=== PATIENT | female | born 1965 | race Caucasian/White ===

== ENCOUNTER → 2018-05-10 18:15 | Outpatient (CLI) | payer OTHER, SELFPAY | PROVIDERS: Visit Provider Physician Assistant | DX: N39.0 Urinary tract infection, site not specified (principal) | CPT/HCPCS: 87086; 87088; 87186 ==

== ENCOUNTER 2018-05-23 13:38 | Outpatient (RCR) | payer OTHER, SELFPAY ==
--- NOTE | 2018-05-23 14:39 | HMH.PTOPEV ---
PT Outpatient Evaluation Rehab PT Outpatient Evaluation Start: 05/23/18 14:22 Freq: Status: Active Protocol: Document 05/23/18 14:30 SULMAAMANDEEP (Rec: 05/23/18 14:39 JENELLE [id number]) Electronically Signed By Sohail Renee, PT 05/23/18 14:30 Outpatient Therapy Subjective History Subjective History This is the initial OP PT evaluation for Aleja Brown. PT is a 53 y/o female referred to PT for c/o R sided neck pain and RUE paresthesia. Pt rpeorts pain and numbness began ~ 1 year ago when she fell off counter and landed on kitchen table. Chief Complaint Pain Paresthesia Symptom Type Sharp Numbness Tingling Symptoms Relieved By Nothing Symptoms Aggravated By Prone Supine Sitting Standing Bending/Stooping Physical Activity Lifting Sneeze/Coughing Prior Functional Limitations None Current Functional Limitations Reaching Lifting Housework Desk Work/Reading Driving Sleeping Symptom Description Intermittent Level of pain today (0-10) 9 Pain scale - at its best (0-10) 9 Pain scale - at its worst (0-10) 9 Cervical Eval Palpation Cervical Muscles R Cervical Paraspinal L Cervical Paraspinal R Suboccipital R SCM L SCM R CT Junction R Upper Trapezius R Thoracic Paraspinals Cervical/Thoracic Palpation Findings Tenderness Spasm Muscle Guarding Passive Joint Mobility Cervical PIVM Dec: R C2/3 R C3/4 R C4/5 R C5/6 AROM Cervical Spine Extension Active Range of 20 Motion (degrees) Cervical Spine Flexion Active Range of 60 Motion (degrees) Cervical Spine Right Lateral Flexion 25 Active Range of Motion (degrees)
== END 2018-05-23 13:40 | disposition home or self-care (01) ==
LOC: PT 13:38
PROVIDERS: Visit Provider Physician Assistant
DX: M50.222 Other cervical disc displacement at C5-C6 level (principal)
CPT/HCPCS: 97163

== ENCOUNTER 2020-08-16 09:24 | Emergency (ER) | payer OTHER, SELFPAY ==
[2020-08-16 09:25] VITALS: BP 118/88; PULSE 89; RESP 20; TEMP 36.8; O2SAT 97; BMI 22.3
[2020-08-16 09:44] VITALS: BMI 23.4
--- NOTE | 2020-08-16 09:47 | PC.NURSE ---
verbal orders given per provide perfecto peraza -orders placed on pt at this time per post exposure set as directed per perfecto peraza.
--- NOTE | 2020-08-16 09:48 | HMH.EDUTC ---
[facility] [place] Clinical Impression: Needlestick injury of finger of left hand Disposition: Home, Self-Care Condition on Discharge: Good Instructions: How to Handle Body Fluid Exposure -- Healthcare Worker Prescriptions: Dolutegravir Sodium [Tivicay] 50 mg PO DAILY 28 Days #28 tab Transmission Status: Received by [facility] Emtricitabine/Tenofovir (Tdf) [Truvada 200/300 mg Tablet] 1 each PO DAILY 28 Days #28 tab Transmission Status: Received by [facility] Referrals: Nesha Nelson PA [Primary Care Provider] - Time of Disposition: 09:58 Medical Decision Making - Mehran Inquiry Pt receiving controlled substance: No Vital Signs: 08/16/20 09:25 Temperature 98.3 F Temperature Source Oral Pulse Rate [Right Brachial] 89 Respiratory Rate 20 Blood Pressure [Right Arm] 118/88 Blood Pressure Mean [Right Arm] 98 Blood Pressure Source [Right Arm] Automatic Cuff Blood Pressure Position [Right Arm] Sitting 02 Sat by Pulse Oximetry 97 Oxygen Delivery Method Room Air Orders (Tests/Meds): ED MEDICATIONS Generic Name Dose Route Start Last Admin Trade Name Freq PRN Reason Stop Dose Admin Emtricitabine/Tenofovir 1 each 08/16/20 10:00 08/16/20 09:59 Emtricitabine/Tenofovir 200/300mg Tab PO 08/30/20 09:59 1 each DAILY JOSE LUIS Administration Raltegravir 400 mg 08/16/20 10:00 08/16/20 09:59 Raltegravir 400mg Tablet PO 08/30/20 09:59 400 mg BID JOSE LUIS Administration Discontinued Medications Generic Name Dose Route Start Last Admin Trade Name Freq PRN Reason Stop Dose Admin Tetanus/Reduced Diphtheria/Acell Pertussis 0.5 ml 08/16/20 09:45 08/16/20 10:00 Tet/Diphth/Pert-Adult 0.5ml Syringe IM 08/16/20 09:46 0.5 ml .ONCE ONE Administration ORDERS Category Date Time Status Complete Blood Count Auto Diff Stat Lab 08/16/20 09:45 Ordered HBsAg Screen Stat Lab 08/16/20 09:45 Ordered HIV Panel [id number] Stat Lab 08/16/20 09:45 Ordered Hepatitis B Surf Ab Quant Stat Lab 08/16/20 09:45 Ordered Hepatitis C Antibody Stat Lab 08/16/20 09:45 Ordered Liver Panel Stat Lab 08/16/20 09:45 Ordered PT/PTT Stat Lab 08/16/20 09:45 Or[place] [facility] [place] - General Stated complaint: a/o 08/16 stuck with dirty needle Time Seen by Provider: 08/16/20 09:49 Mode of Arrival: Ambulatory Source of Information: Patient Limitations: No Limitations Description of Symptoms (Recalled from Triage Doc. 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 UNKNOWN WHAT NEEDLE WAS USED FOR. SHE STATES THE NEEDLE STUCK HER WHILE SHE WAS SWEEPING UNDER A BED IN RESIDENT'S ROOM HEENT Symptoms (Recalled from RN notes): No Resp Symptoms (Recalled from RN notes): No Skin Symptoms (Recalled from RN notes): Yes MS Symptoms (Recalled from RN notes): No Functional Status (Recalled from RN notes): WNL - History of Present Illness Provider Complaint: Accidental needlestick injury to pad of left index finger approximately 1.5 hours ago. 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 Used her hand to scoop items into the dustbin and was stuck. The resident whose bed this was is not known to be HIV positive but they are unsure if this needle actually came from the patient in question as it was under the bed. She did wash her hands immediately after the needlestick. Onset (ago): hour(s) (1.5) Location: left, upper extremity Relieving factors: none Exacerbating factors: none Associated symptoms: denies other symptoms Treatments prior to arrival: none - Related Data Previous Rx's Medication Instructions Recorded Dolutegravir Sodium [Tivicay] 50 mg PO DAILY 28 Days #28 tab 08/16/20 Emtricitabine/Tenofovir (Tdf) 1 each PO DAILY 28 Days #28 tab 08/16/20 [Truvada 200/300 mg Tablet] Allergies Allergy/AdvReac Type Severity Reaction Status Date / Time aspirin [ASPIRIN] Allergy Intermediate I-HIVES Verified 08/28/19 14:01 morphine [M
[2020-08-16 10:34] VITALS: BP 118/88; PULSE 89; RESP 20; TEMP 36.8; O2SAT 97
[2020-08-16 10:38] LABS: Basophils % 0.5 % (0.1-2.0); Eosinophils # 0.1 K/mm3 (0.0-0.4); Eosinophils % 1.5 % (0.1-12.0); Hematocrit 42.3 % (37.0-47.0); Hemoglobin 13.9 g/dL (12.2-16.2); Lymphocytes # 1.6 K/mm3 (0.7-4.5); Lymphocytes % 28.4 % (10-50); Mean Corpuscular HGB Conc 32.9 g/dL (31.8-35.4); Mean Corpuscular Volume 97.5 fl (81-99); Mean Platelet Volume 7.4 fl (7.4-10.4); Monocytes # 0.2 K/mm3 (0.1-1.0); Monocytes % 3.6 % (1.7-9.3); Neutrophils # 3.8 K/mm3 (1.8-7.8); Neutrophils % 66.1 % (37.0-80.0); Platelet Count 232 K/mm3 (142-424); Red Blood Count 4.34 M/mm3 (4.20-5.40); Red Cell Distribution Width 13.1 % (11.5-17.5); White Blood Count 5.7 K/mm3 (4.8-10.8)
[2020-08-16 10:50] LABS: Alanine Aminotransferase 17 U/L (12-78); Albumin Level 4.6 g/dl (3.5-5.0); Alkaline Phosphatase 99 U/L (38-126); Aspartate Amino Transferase 32 U/L (14-36); Bilirubin,Direct 0.2 mg/dl (0.0-0.4); Bilirubin,Indirect 0.5 mg/dL (0.0-0.9); Bilirubin,Total 0.7 mg/dl (0.2-1.3); Bilirubin,Unconjugated 0.5 mg/dL (0.0-1.1); Total Protein,Serum 8.7 g/dl (6.3-8.2)
[2020-08-16 10:58] LABS: Activated Partial Thrombo Time 23.6 seconds (23.6-34.0); INR 0.98 (0.9-1.1); Prothrombin Time 10.9 seconds (9.4-11.8)
[2020-08-18 01:06] LABS: HIV Screen 4th Generation wRfx Non Reactive (Non Reactive); Hepatitis B Surf Ab Quant 260.3 mIU/mL (Immunity>9.9); Hepatitis B Surface Antigen Negative (Negative); Hepatitis C Antibody <0.1 s/co ratio (0.0-0.9)
== END 2020-08-16 10:37 | disposition home or self-care (01) ==
PROVIDERS: Emergency Provider Physician Assistant; PCP Physician Assistant
DX: S61.231A Puncture wound without foreign body of left index finger without damage to nail, initial encounter (principal); W22.8XXA Striking against or struck by other objects, initial encounter; Y92.69 Other specified industrial and construction area as the place of occurrence of the external cause; Y99.0 Civilian activity done for income or pay; Z23 Encounter for immunization
CPT/HCPCS: 36415; 80076; 85025; 85610; 85730; 86703; 86706; 87340; 87380; 90471; 90715; 99202; G0432; G0463

== ENCOUNTER 2020-12-16 10:23 | Emergency (ER) | payer OTHER, SELFPAY ==
[2020-12-16 10:23] VITALS: BP 119/74; PULSE 106; RESP 18; TEMP 36.9; O2SAT 96; BMI 18.8
--- NOTE | 2020-12-16 10:42 | HMH.EDGENADL ---
ED Disposition Clinical Impression: Radiculopathy Qualifiers: Spinal region: lumbar Qualified Code(s): M54.16 - Radiculopathy, lumbar region Disposition: Home, Self-Care Condition on Discharge: Fair Instructions: DI for Muscle Strain Referrals: Nesha Nleson PA [Primary Care Provider] - 3 days Time of Disposition: 12:02 - Critical Care Critical Care Time: No Attestation: On 12/16/20, the high probability of a clinically significant, sudden or life threatening deterioration of the following system(s) required my full and direct attention, intervention and personal management. The time I documented below is in addition to time spent performing reported procedures but includes the following listed in this critical care notation. Medical Decision Making - Medical Records Medical records reviewed: Yes: I reviewed the patient's medical records. - Mehran Inquiry Pt receiving controlled substance: No Vital Signs: 12/16/20 10:23 12/16/20 10:52 Temperature 98.5 F Temperature Source Oral Pulse Rate 94 H Pulse Rate [Left] 106 H Respiratory Rate 18 16 Blood Pressure 96/63 L Blood Pressure [Right Arm] 119/74 Blood Pressure Mean [Right Arm] 89 Blood Pressure Source Automatic Cuff Blood Pressure Source [Right Arm] Automatic Cuff Blood Pressure Position Sitting Blood Pressure Position [Right Arm] Sitting 02 Sat by Pulse Oximetry 96 96 Oxygen Delivery Method Room Air Room Air Orders (Tests/Meds): ED MEDICATIONS Discontinued Medications Generic Name Dose Route Start Last Admin Trade Name Freq PRN Reason Stop Dose Admin Ketorolac Tromethamine 15 mg 12/16/20 10:49 12/16/20 10:55 Ketorolac 30mg/Ml Vial IM 12/16/20 10:50 15 mg ONCE ONE Administration - Radiology Data #1 Image(s): L-Spine Image Reviewed: Yes I have reviewed radiologist's interpretation Preliminary Findings: Normal/NAD Mild loss in disc height L2, 3, 4, 5. Medical Decision Narrative: 55yo F evaluated for right lower extremity pain. Patient in no acute distress initial evaluation. Physical exam is largely unremarkable. Patient denies any trauma. No previous history, therefore plain films obtained. Patient provided Toradol for pain. Patient plain films reveal loss of disc height but otherwise unremarkable. Patient symptoms have improved with Toradol. Discussed heat/cold, NSAIDs, activity as tolerated. Patient voiced understanding and agreed with plan. General Adult HPI - General Stated complaint: rt leg pain, swelling Time Seen by Provider: 12/16/20 10:42 Mode of Arrival: Ambulatory Source of Information: Patient - History of Present Illness HPI narrative: 55yo F presents the emergency department secondary to right leg pain. Patient states pain is worst on her lateral hip/thigh. Symptoms began yesterday morning. She states they are improved by sitting in a warm bath. They are worse with physical activity. No previous episodes similar to this. Denies any fall, trauma. Denies any surgery on her back. Denies any shortness of breath, rapid heart rate, history of blood clot. - Related Data Allergies Allergy/AdvReac Type Severity Reaction Status Date / Time aspirin [ASPIRIN] Allergy Intermediate I-HIVES Verified 08/28/19 14:01 morphine [MORPHINE] Allergy Intermediate S-SWELLS-OR Verified 08/28/19 14:01 AL/THROAT Penicillins [PENICILLINS] Allergy Unknown NA-NAUSEA/V Verified 08/28/19 14:01 OMITING [facility] History - Hepatitis A Screen Drug use history?: No Attestation statement:: This patient has been screened for Hepatitis A risk factors. I have reviewed the patient's past medical history: Yes Medical History: Denies:: Diabetes Mellitus Type 1, Diabetes Mellitus Type 2 Other Surgeries: Yes: Hysterectomy-Partial Amputation: No Fractures: No - Social History Smoking Status: Current every day smoker Tobacco Type: cigarettes # Packs/Day (cigarettes): 1 Alcohol Intake: ne
--- NOTE | 2020-12-16 10:49 | XR_ITS ---
PROCEDURE: XR LUMBAR SPINE MIN 4V CLINICAL INDICATION: pain, radicular COMPARISON: CT ABDPELWO CT abdomen pelvis wo con from 04/20/2018 FINDINGS: No fracture or dislocation. No lytic or blastic change. There is normal mineralization. Mild thoracolumbar curvature convex right. Mild degenerative disc disease lower thoracic spine. Mild degenerative disc disease lumbar spine with small anterior osteophytes and slight decrease in the disc spaces posteriorly. There is slight decrease in height anteriorly of L2, L3, L4 and L5. This however is a chronic finding and may be developmental having a similar appearance on a prior CT of 04/20/2018. Other findings:None. IMPRESSION: Degenerative changes as described above. No acute finding. Dictated by: Salinas Farnsworth MD 12/16/2020 11:27 Salinas Farnsworth MD in [place] 12/16/2020 11:27
[2020-12-16 10:52] VITALS: BP 96/63; PULSE 94; RESP 16; O2SAT 96
[2020-12-16 12:10] VITALS: BP 107/5; PULSE 79; RESP 20; TEMP 36.8; O2SAT 98
== END 2020-12-16 12:10 | disposition home or self-care (01) ==
PROVIDERS: Emergency Provider Family Medicine; PCP Physician Assistant
DX: M54.16 Radiculopathy, lumbar region (principal); F17.210 Nicotine dependence, cigarettes, uncomplicated; Z88.0 Allergy status to penicillin; Z88.5 Allergy status to narcotic agent
CPT/HCPCS: 72110; 96372; 99282

== ENCOUNTER 2022-02-16 06:58 | Emergency (ER) | payer OTHER, SELFPAY ==
[2022-02-16] VITALS (8 sets, daily range): BP systolic 111–123; BP diastolic 58–93; PULSE 61–91; RESP 18; TEMP 36.8; O2SAT 97–100; BMI 17.2
[2022-02-16 07:41] LABS: Microscopic, Urine URINE MICROSCOPIC (MICROSCOPIC)
--- NOTE | 2022-02-16 07:43 | HMH.EDGENADL ---
ED Disposition Clinical Impression: Liver cyst Low back strain Qualifiers: Encounter type: initial encounter Qualified Code(s): S39.012A - Strain of muscle, fascia and tendon of lower back, initial encounter Disposition: Home, Self-Care Condition on Discharge: Good Instructions: DI for Acute Pain -- Child Prescriptions: Cyclobenzaprine HCl [Flexeril 10mg tablet] 10 mg PO Q8HP PRN 30 Days #20 tab PRN Reason: Muscle Spasm Transmission Status: Received by [facility] cephALEXin [cephALEXin 500mg capsule*] 500 mg PO Q6H 7 Days #28 cap Transmission Status: Received by [facility] Referrals: Nesha Nelson PA [Primary Care Provider] - - Critical Care Critical Care Time: No Attestation: On 02/16/22, the high probability of a clinically significant, sudden or life threatening deterioration of the following system(s) required my full and direct attention, intervention and personal management. The time I documented below is in addition to time spent performing reported procedures but includes the following listed in this critical care notation. Medical Decision Making - Medical Records Medical records reviewed: Yes: I reviewed the patient's medical records. - Mehran Inquiry Pt receiving controlled substance: No Mehran was queried for this patient: No Vital Signs: 02/16/22 06:59 02/16/22 07:30 02/16/22 07:33 Temperature 98.2 F Temperature Source Oral Pulse Rate 76 81 Pulse Rate [Left Radial] 91 H Respiratory Rate 18 Blood Pressure 112/68 112/68 Blood Pressure [Right Arm] 123/93 H Blood Pressure Mean 82 Blood Pressure Mean [Right Arm] 103 Blood Pressure Source Automatic Cuff Blood Pressure Source [Right Arm] Automatic Cuff Blood Pressure Position Sitting Blood Pressure Position [Right Arm] Sitting 02 Sat by Pulse Oximetry 98 98 98 Oxygen Delivery Method Room Air Room Air 02/16/22 08:00 02/16/22 08:15 02/16/22 09:09 Temperature Temperature Source Pulse Rate 70 63 67 Pulse Rate [Left Radial] Respiratory Rate Blood Pressure 111/67 113/58 L Blood Pressure [Right Arm] Blood Pressure Mean 77 81 Blood Pressure Mean [Right Arm] Blood Pressure Source Blood Pressure Source [Right Arm] Blood Pressure Position Blood Pressure Position [Right Arm] 02 Sat by Pulse Oximetry 97 98 100 Oxygen Delivery Method Room Air 02/16/22 09:30 02/16/22 09:39 Temperature 98.2 F Temperature Source Pulse Rate 67 61 Pulse Rate [Left Radial] Respiratory Rate 18 Blood Pressure 114/59 L 114/59 L Blood Pressure [Right Arm] Blood Pressure Mean 77 Blood Pressure Mean [Right Arm] Blood Pressure Source Blood Pressure Source [Right Arm] Blood Pressure Position Blood Pressure Position [Right Arm] 02 Sat by Pulse Oximetry 100 Oxygen Delivery Method Room Air - Lab Data Lab results reviewed: Yes: I reviewed the patient's lab results. Lab Results 02/16/22 07:10: Urine Color Yellow, Urine Appearance Sl cloudy, Urine pH 6.5, Ur Specific [place] 1.020, Urine Protein Negative, Urine Glucose (UA) Negative, Urine Ketones Negative, Urine Blood Trace-i, Urine Nitrate Negative, Urine Bilirubin Negative, Urine Urobilinogen 0.2, Ur Leukocyte Esterase Negative, Urine RBC Occasional, Urine WBC Occasional, Ur Squamous Epith Cells 5-10, Urine Bacteria 1+ 02/16/22 08:05: WBC 4.0 L, RBC 4.04 L, Hgb 12.9, Hct 40.9, MCV 101.2 H, MCH 32.1 H, MCHC 31.7 L, RDW 13.0, Plt Count 240, MPV 7.8, Neut % (Auto) 57.5, Lymph % (Auto) 34.5, [place] % (Auto) 4.0, Eos % (Auto) 2.4, Baso % (Auto) 1.6, Neut # (Auto) 2.3, Lymph # (Auto) 1.4, [place] # (Auto) 0.2, Eos # (Auto) 0.1, Baso # (Auto) 0.1 02/16/22 08:05: Sodium 139, Potassium 4.2, Chloride 109 H, Carbon Dioxide 28, Anion Gap 6.2, BUN 14, Creatinine 0.60, Estimated Creat Clear 76, Estimated GFR 104, Est GFR ( Amer) 126, Glucose 107 H, Calcium 8.5, Total Bilirubin < 0.1 L, AST 21, ALT 12, Alkaline Phosphatase 97, T
--- NOTE | 2022-02-16 07:44 | PC.NURSE ---
SHAHID VILLAGOMEZ at for patient eval
[2022-02-16 07:46] LABS: Appearance,Urine SL CLOUDY (Clear); Bilirubin,Urine Negative (Negative); Blood, Urine TRACE-I (Negative); Color,Urine YELLOW (Yellow); Glucose,Urine (UA) Negative (Negative); Ketones,Urine Negative (Negative); Leukocyte Esterase,Urine Negative (Negative); Nitrate,Urine Negative (Negative); PH,Urine 6.5 (5.0-8.5); Protein,Urine Negative (Negative); Urobilinogen,Urine 0.2 EU/dl (0.2)
--- NOTE | 2022-02-16 07:47 | PC.NURSE ---
chaperoned SHAHID VILLAGOMEZ at while he examined patient
--- NOTE | 2022-02-16 07:54 | PC.NURSE ---
pt changed into gown for CT scan. another warm blanket given. call light within reach
--- NOTE | 2022-02-16 07:56 | CT_ITS ---
FINAL REPORT TECHNIQUE: After the administration of oral and intravenous contrast, axial images were obtained through the abdomen and pelvis by computed tomography. The study was performed with techniques to keep radiation dose as low as reasonably achievable, (ALARA). Individual dose reduction techniques using automated exposure control or adjustment of mA and/or kV according to the patient's size were employed. CLINICAL HISTORY: pelvic pain, hx of cyst on liver. COMPARISON: 04/20/2018 FINDINGS: Abdomen: There is scarring and atelectasis in the right mid lung. The liver parenchyma is homogeneous. There are several cysts within the lateral segment of the left lobe of the liver. The largest measures approximately 7.6 x 6.7 cm and previously measured 7.4 x 6.2 cm. The gallbladder is present. The spleen, pancreas, adrenals and kidneys appear unremarkable. The aorta is normal in caliber. There is no free fluid or adenopathy. Pelvis: The appendix is not identified. The urinary bladder is unremarkable. There is no free fluid or adenopathy. IMPRESSION: Slight increase in size of dominant cyst in the left lobe of the liver. No acute intra-abdominal abnormality. Reviewed, Interpreted and Dictated by Pool Dior MD Transcribed by Sona Rivas Authenticated and [facility]
[2022-02-16 07:57] LABS: Bacteria,Urine 1+ /lpf; RBC,Urine Occasional #/hpf (0-3); WBC,Urine Occasional #/hpf (0-3)
[2022-02-16 08:15] LABS: Basophils # 0.1 K/mm3 (0-0.2); Basophils % 1.6 % (0.1-2.0); Eosinophils # 0.1 K/mm3 (0.0-0.4); Eosinophils % 2.4 % (0.1-12.0); Hematocrit 40.9 % (37.0-47.0); Hemoglobin 12.9 g/dL (12.2-16.2); Lymphocytes # 1.4 K/mm3 (0.7-4.5); Lymphocytes % 34.5 % (10-50); Mean Corpuscular HGB Conc 31.7 g/dL (31.8-35.4); Mean Corpuscular Hemoglobin 32.1 pg (27.0-31.2); Mean Corpuscular Volume 101.2 fl (81-99); Mean Platelet Volume 7.8 fl (7.4-10.4); Monocytes # 0.2 K/mm3 (0.1-1.0); Neutrophils # 2.3 K/mm3 (1.8-7.8); Neutrophils % 57.5 % (37.0-80.0); Platelet Count 240 K/mm3 (142-424); Red Blood Count 4.04 M/mm3 (4.20-5.40)
[2022-02-16 08:22] LABS: Alanine Aminotransferase 12 U/L (12-78); Albumin Level 3.6 g/dl (3.5-5.0); Albumin/Globulin Ratio 1.3 (1.1-1.8); Alkaline Phosphatase 97 U/L (38-126); Anion Gap 6.2 mEq/L (5-15); Aspartate Amino Transferase 21 U/L (14-36); Blood Urea Nitrogen 14 mg/dl (7-17); Calcium 8.5 mg/dl (8.4-10.2); Carbon Dioxide 28 mmol/L (22.0-30.0); Chloride 109 mmol/L (98-107); Creatinine Clearance Estimated 76 mL/min (50-200); Estimated Glomerular Filt Rate 104 ml/min (>60); GFR (African American) 126 ML/MIN (>60); Globulin 2.8 g/dL (1.3-3.2); Glucose 107 mg/dl (74-100); Potassium 4.2 mmoL/L (3.5-5.1); Sodium 139 mmol/L (136-145); Total Protein,Serum 6.4 g/dl (6.3-8.2)
[2022-02-16 08:23] LABS: Lipase 87 U/L (23-300)
[2022-02-16 08:28] LABS: Bilirubin,Total < 0.1 mg/dl (0.2-1.3)
--- NOTE | 2022-02-16 09:09 | PC.NURSE ---
pt ambulatory to and from restroom without complications. she is hooked back to monitor, and is aware that we are waiting on CT scan to be read. call light within reach, no other needs at this time
--- NOTE | 2022-02-16 09:17 | PC.NURSE ---
Notified ER of CT scan being back.
--- NOTE | 2022-02-16 09:27 | PC.NURSE ---
ER MD at speaking with patient regarding update on POC/test results
--- NOTE | 2022-02-16 09:47 | PC.NURSE ---
Pt ambulatory out of ER without complications
--- NOTE | 2022-02-17 15:12 | PC.NURSE ---
zoan script [facility]
== END 2022-02-16 09:40 | disposition home or self-care (01) ==
PROVIDERS: Emergency Provider Emergency Medicine; PCP Physician Assistant
DX: S39.012A Strain of muscle, fascia and tendon of lower back, initial encounter (principal); K76.89 Other specified diseases of liver; N94.89 Other specified conditions associated with female genital organs and menstrual cycle; F17.210 Nicotine dependence, cigarettes, uncomplicated; Z88.0 Allergy status to penicillin; Z88.5 Allergy status to narcotic agent; Z88.6 Allergy status to analgesic agent
CPT/HCPCS: 74177; 80053; 81001; 83690; 85025; 96374; 99284; Q9967

== ENCOUNTER 2023-03-08 07:12 | Emergency (ER) | payer OTHER, SELFPAY ==
[2023-03-08] VITALS (11 sets, daily range): BP systolic 83–144; BP diastolic 41–81; PULSE 53–89; RESP 16; TEMP 36.6–36.7; O2SAT 92–99; BMI 19.1
--- NOTE | 2023-03-08 07:39 | PC.NURSE ---
Dr. Stringer at [facility] for pt eval
--- NOTE | 2023-03-08 07:40 | CT_ITS ---
FINAL REPORT TECHNIQUE: After the administration of intravenous contrast, axial images were obtained through the abdomen and pelvis by computed tomography. This study was performed with technique to keep radiation doses as low as reasonably achievable, (ALARA). Individualized dose reduction techniques using automated exposure control or adjustment of the MA and/or KV according to the patient's size were employed. CLINICAL HISTORY: RLQ pain, vomit COMPARISON: 02/16/2022 FINDINGS: Abdomen: The lung bases demonstrate right middle lobe and lingular atelectasis or scarring. A cyst is seen in the lateral left hepatic lobe which is stable measuring 7.6 cm in transverse dimension. 2 smaller left hepatic lobe cysts are also seen. There is a hemangioma in the right hepatic lobe. The spleen is unremarkable. The adrenals are normal. The pancreas is unremarkable. The kidneys enhance appropriately. The aorta is normal in caliber. There is no free fluid or adenopathy. Pelvis: The appendix is not identified. Patient is status post hysterectomy. There is thickening of the vaginal cuff which is stable but of uncertain significance. The urinary bladder is unremarkable. There is no free fluid or adenopathy. IMPRESSION: Stable hepatic cysts. Stable thickening of the vaginal cuff of uncertain significance. Reviewed, Interpreted and Dictated by Quentin Johnson III, MD Transcribed by Salma Fernando Authenticated and [facility]
--- NOTE | 2023-03-08 07:48 | HMH.EDGENADL ---
Discharge Plan Disposition Patient Disposition: Home, Self-Care Prescriptions Prescriptions: New ondansetron 4 mg tablet,disintegrating 4 mg PO Q8H 4 Days Qty: 12 0RF No Action methocarbamol 500 MG tablet 500 mg PO TIDP PRN (Reason: Muscle Spasm) Qty: 15 0RF cyclobenzaprine 10 MG tablet 10 mg PO Q8HP PRN (Reason: Muscle Spasm) 30 Days Qty: 20 0RF Referrals Follow up/Referrals: Nesha Nelson PA [Primary Care Provider] - See instructions Activity Restrictions/Add. Instructions Additional Instructions/Restrictions: At this time is felt you are safe to be discharged home. If new or worsening symptoms please do not hesitate to return the emergency department. Please follow-up with your family doctor within 48 to 72 hours. Please take your medications as prescribed. Clinical Impressions Clinical Impression: Abdominal pain, Hematuria Instructions Patient Instructions: DI for Acute Abdominal Pain Discharge ED Provider: Milton Stringer General Adult HPI General Chief complaint: Abdominal Pain Stated complaint: vomiting, abd pain Time Seen by Provider: 03/08/23 07:25 Mode of Arrival: Wheelchair Source of Information: Patient Limitations: No Limitations Description of Symptoms (Recalled from ER Triage Doc. by RN): 58 yo F presents to ED for RLQ abd pain, back pain. pt reports pain off and on for a long time . pt reports that she has had problems with her ovaries in the past. History of Present Illness HPI narrative: Patient is a 58-year-old female who presents emergency department for evaluation of right lower quadrant abdominal pain. She has had waxing and waning abdominal pain for many months. She does state that she has had a hysterectomy, has a reported cyst on her liver. Over the last 24 hours she has had pain worse than normal, right lower quadrant, associated vomiting. Related Data Previous Rx's Medication Instructions Recorded methocarbamol 500 mg tablet 500 mg PO TIDP PRN Muscle Spasm 12/16/20 #15 tabs cyclobenzaprine 10 mg tablet 10 mg PO Q8HP PRN Muscle Spasm 30 02/16/22 days #20 tabs ondansetron 4 mg disintegrating 4 mg PO Q8H 4 days #12 tabs 03/08/23 tablet Allergies Allergy/AdvReac Type Severity Reaction Status Date / Time aspirin [ASPIRIN] Allergy Intermediate I-HIVES Verified 04/03/22 08:28 morphine [MORPHINE] Allergy Intermediate S-SWELLS-OR Verified 04/03/22 08:28 AL/THROAT Penicillins [PENICILLINS] Allergy Unknown NA-NAUSEA/V Verified 04/03/22 08:28 OMITING PFSH PFSH Disclaimer: The information contained in this section may have been updated after the patient was seen, as this information can be updated by other users. Medical History Hepatic cyst Increased urinary frequency Liver cyst Protrusion of cervical intervertebral disc Surgical History History of hysterectomy for benign disease Social History Smoking Status: Current every day smoker tobacco type: cigarettes packs per day: 1 second hand exposure: No alcohol intake: never current occupational status: other Travel in the last 8 weeks: None ROS Obtained: Yes Systems reviewed as appropriate & no additional complaints except as documented Physical Exam General General appearance: alert and in no apparent distress Head Head exam: atraumatic and normocephalic Eye Eye exam: Present PERRL and EOMI ENT ENT exam: Present mucous membranes moist Neck Neck exam: Present normal inspection Chest Chest inspection: Present normal inspection and symmetric chest wall rise Respiratory Respiratory exam: Present normal lung sounds bilaterally; Absent respiratory distress Cardiovascular Cardiovascular exam: Present regular rate and normal rhythm Abdominal Exam Abdominal exam: Present soft, tenderness (Right lower quadrant)
[2023-03-08 07:50] LABS: Microscopic, Urine URINE MICROSCOPIC (MICROSCOPIC)
[2023-03-08 07:54] LABS: Basophils % 0.1 % (0.1-2.0); Eosinophils % 0.1 % (0.1-12.0); Hematocrit 41.3 % (37.0-47.0); Hemoglobin 13.3 g/dL (12.2-16.2); Lymphocytes % 8.1 % (10-50); Mean Corpuscular HGB Conc 32.1 g/dL (31.8-35.4); Mean Corpuscular Hemoglobin 30.8 pg (27.0-31.2); Mean Corpuscular Volume 95.7 fl (81-99); Mean Platelet Volume 7.5 fl (7.4-10.4); Monocytes # 0.2 K/mm3 (0.1-1.0); Monocytes % 1.6 % (1.7-9.3); Neutrophils # 11.1 K/mm3 (1.8-7.8); Neutrophils % 90.1 % (37.0-80.0); Platelet Count 243 K/mm3 (142-424); Red Blood Count 4.31 M/mm3 (4.20-5.40); Red Cell Distribution Width 12.9 % (11.5-17.5); White Blood Count 12.3 K/mm3 (4.8-10.8)
[2023-03-08 07:55] LABS: Appearance,Urine SL CLOUDY (Clear); Bilirubin,Urine Negative (Negative); Blood, Urine 2+ (Negative); Color,Urine YELLOW (Yellow); Glucose,Urine (UA) Negative (Negative); Ketones,Urine Negative (Negative); Leukocyte Esterase,Urine Negative (Negative); Nitrate,Urine Negative (Negative); Protein,Urine Negative (Negative); Specific Gravity, Urine 1.025 (1.005-1.030); Urobilinogen,Urine 0.2 EU/dl (0.2)
[2023-03-08 07:55] LABS: Alanine Aminotransferase 15 U/L (12-78); Albumin Level 4.2 g/dl (3.5-5.0); Albumin/Globulin Ratio 1.2 (1.1-1.8); Alkaline Phosphatase 104 U/L (38-126); Anion Gap 11.9 mEq/L (5-15); Aspartate Amino Transferase 23 U/L (14-36); Bilirubin,Total 0.2 mg/dl (0.2-1.3); Blood Urea Nitrogen 17 mg/dl (7-17); Calcium 9.1 mg/dl (8.4-10.2); Carbon Dioxide 27 mmol/L (22.0-30.0); Chloride 105 mmol/L (98-107); Creatinine Clearance Estimated 57 mL/min (50-200); Estimated Glomerular Filt Rate 65 ml/min (>60); GFR (African American) 78 ML/MIN (>60); Globulin 3.4 g/dL (1.3-3.2); Glucose 179 mg/dl (74-100); Lipase 83 U/L (23-300); Potassium 3.9 mmoL/L (3.5-5.1); Sodium 140 mmol/L (136-145); Total Protein,Serum 7.6 g/dl (6.3-8.2)
[2023-03-08 08:04] LABS: MANUAL DIFFERENTIAL MANUAL DIFFERENTIAL (MANUAL DIFF)
[2023-03-08 08:06] LABS: Bacteria,Urine Trace /lpf; Squamous Epithelial Cell,Urine Occasional #/hpf (0-5)
--- NOTE | 2023-03-08 08:21 | PC.NURSE ---
Pt gone to RAD via wheelchair
[2023-03-08 08:23] LABS: Lymphocytes % 11 % (10-50); Neutrophils % 89 % (42-76); Platelet Estimate Normal; RBC Morphology Normal; Total Cells Counted 100
--- NOTE | 2023-03-08 08:33 | PC.NURSE ---
Pt returned from RAD
--- NOTE | 2023-03-08 09:31 | PC.NURSE ---
Rounded on pt. No needs voiced at this time. Call light within reach.
--- NOTE | 2023-03-08 09:59 | PC.NURSE ---
radiology to send preliminary report
--- NOTE | 2023-03-08 10:42 | US_ITS ---
FINAL REPORT CLINICAL HISTORY: remote hysterectomy, severe pelvic pain COMPARISON: None FINDINGS: Transvaginal sonographic images of the pelvis were obtained. Status post hysterectomy. The left ovary is not visualized. The right ovary measures 1.5 cm in length. IMPRESSION: No acute abnormality identified. Reviewed, Interpreted and Dictated by Quentin Johnson III, MD Transcribed by Jolene Adam Authenticated and [facility]
== END 2023-03-08 13:33 | disposition home or self-care (01) ==
PROVIDERS: Emergency Provider Emergency Medicine; PCP Physician Assistant
DX: R10.31 Right lower quadrant pain (principal); R31.9 Hematuria, unspecified; R11.10 Vomiting, unspecified; K76.89 Other specified diseases of liver; F17.210 Nicotine dependence, cigarettes, uncomplicated
CPT/HCPCS: 74177; 76830; 80053; 81001; 83690; 85007; 85025; 96361; 96374; 96375; 96376; 99285; J0131; J2405

== ENCOUNTER 2023-03-15 11:47 | Emergency (ER) | payer OTHER, SELFPAY ==
[2023-03-15 11:48] VITALS: BP 179/77; PULSE 95; RESP 14; TEMP 36.8; O2SAT 96
[2023-03-15 12:02] LABS: Microscopic, Urine URINE MICROSCOPIC (MICROSCOPIC)
[2023-03-15 12:04] LABS: Appearance,Urine CLEAR (Clear); Bilirubin,Urine Negative (Negative); Blood, Urine 1+ (Negative); Color,Urine YELLOW (Yellow); Glucose,Urine (UA) Negative (Negative); Ketones,Urine Negative (Negative); Leukocyte Esterase,Urine Negative (Negative); Nitrate,Urine Negative (Negative); Protein,Urine Negative (Negative); Specific Gravity, Urine 1.025 (1.005-1.030); Urobilinogen,Urine 0.2 EU/dl (0.2)
[2023-03-15 12:18] LABS: Basophils % 0.3 % (0.1-2.0); Eosinophils # 0.1 K/mm3 (0.0-0.4); Eosinophils % 1.1 % (0.1-12.0); Hematocrit 41.6 % (37.0-47.0); Hemoglobin 13.5 g/dL (12.2-16.2); Lymphocytes # 2.1 K/mm3 (0.7-4.5); Lymphocytes % 26.5 % (10-50); Mean Corpuscular HGB Conc 32.4 g/dL (31.8-35.4); Mean Corpuscular Hemoglobin 30.9 pg (27.0-31.2); Mean Corpuscular Volume 95.1 fl (81-99); Mean Platelet Volume 7.7 fl (7.4-10.4); Monocytes # 0.3 K/mm3 (0.1-1.0); Monocytes % 3.5 % (1.7-9.3); Neutrophils # 5.3 K/mm3 (1.8-7.8); Neutrophils % 68.6 % (37.0-80.0); Platelet Count 254 K/mm3 (142-424); Red Blood Count 4.37 M/mm3 (4.20-5.40); Red Cell Distribution Width 12.8 % (11.5-17.5); White Blood Count 7.7 K/mm3 (4.8-10.8)
[2023-03-15 12:28] LABS: Lactic Acid 0.8 mmol/L (0.7-2.1)
[2023-03-15 12:29] LABS: Alanine Aminotransferase 15 U/L (12-78); Albumin Level 4.3 g/dl (3.5-5.0); Albumin/Globulin Ratio 1.3 (1.1-1.8); Alkaline Phosphatase 94 U/L (38-126); Anion Gap 15.1 mEq/L (5-15); Aspartate Amino Transferase 29 U/L (14-36); Bilirubin,Total 0.4 mg/dl (0.2-1.3); Blood Urea Nitrogen 12 mg/dl (7-17); Calcium 9.1 mg/dl (8.4-10.2); Carbon Dioxide 25 mmol/L (22.0-30.0); Chloride 104 mmol/L (98-107); Creatinine Clearance Estimated 67 mL/min (50-200); Estimated Glomerular Filt Rate 74 ml/min (>60); GFR (African American) 89 ML/MIN (>60); Globulin 3.3 g/dL (1.3-3.2); Glucose 109 mg/dl (74-100); Lipase 65 U/L (23-300); Potassium 4.1 mmoL/L (3.5-5.1); Sodium 140 mmol/L (136-145); Total Protein,Serum 7.6 g/dl (6.3-8.2)
--- NOTE | 2023-03-15 12:45 | PC.NURSE ---
Rounded on patient. [place] given.
[2023-03-15 12:47] LABS: Bacteria,Urine Trace /lpf
[2023-03-15 13:00] VITALS: BP 98/53; PULSE 82; O2SAT 96
--- NOTE | 2023-03-15 13:18 | HMH.EDGENADL ---
Discharge Plan Disposition Patient Disposition: Home, Self-Care Condition: Good Prescriptions Prescriptions: No Action methocarbamol 500 MG tablet 500 mg PO TIDP PRN (Reason: Muscle Spasm) Qty: 15 0RF ondansetron 4 mg tablet,disintegrating 4 mg PO Q8H 4 Days Qty: 12 0RF cyclobenzaprine 10 MG tablet 10 mg PO Q8HP PRN (Reason: Muscle Spasm) 30 Days Qty: 20 0RF Referrals Follow up/Referrals: Blanca Fermin, [Staff Physician] - See instructions Nesha Nelson PA [Primary Care Provider] - See instructions Activity Restrictions/Add. Instructions Additional Instructions/Restrictions: At this time was felt you are safe to be discharged home. If new or worsening symptoms please do not hesitate to return the emergency department. Please call and schedule an appointment with Dr. Fermin as soon as you are able. Clinical Impressions Clinical Impression: Pelvic pressure in female, Hepatic cyst, H/O: hysterectomy Instructions Patient Instructions: DI for Acute Abdominal Pain Discharge ED Provider: Milton Stringer General Adult HPI General Chief complaint: Abdominal Pain Stated complaint: groin pain Time Seen by Provider: 03/15/23 12:10 Mode of Arrival: Wheelchair Limitations: No Limitations Description of Symptoms (Recalled from ER Triage Doc. by RN): Pt reports pain in L pelvic area, L flank area and reports pressure in rectum and vaginal area. Pt reports was seen in ER on mar 08 for similar symptoms, pt reports symptoms have not resolved and are worse today. Pt denies n/v/d or urinary pain. History of Present Illness HPI narrative: Patient is a 58-year-old female with no pertinent past medical history, previous hysterectomy who presents emergency department for evaluation of pelvic pressure. Patient was evaluated last week by me for abdominal pain ultimately for which work-up was only remarkable for hematuria. Work-up including hematologic labs, CT, transvaginal ultrasound was unremarkable for acute pathology. Patient is yet to follow-up on an outpatient basis but however states that her pain quality has migrated from her right lower quadrant and has turned into pressure that is deep in her vagina and radiates intermittently to her left flank and rectum. No other acute complaints at this time. Related Data Previous Rx's Medication Instructions Recorded methocarbamol 500 mg tablet 500 mg PO TIDP PRN Muscle Spasm 12/16/20 #15 tabs cyclobenzaprine 10 mg tablet 10 mg PO Q8HP PRN Muscle Spasm 30 02/16/22 days #20 tabs ondansetron 4 mg disintegrating 4 mg PO Q8H 4 days #12 tabs 03/08/23 tablet Allergies Allergy/AdvReac Type Severity Reaction Status Date / Time aspirin [ASPIRIN] Allergy Intermediate I-HIVES Verified 04/03/22 08:28 morphine [MORPHINE] Allergy Intermediate S-SWELLS-OR Verified 04/03/22 08:28 AL/THROAT Penicillins [PENICILLINS] Allergy Unknown NA-NAUSEA/V Verified 04/03/22 08:28 OMITING PFSH PFSH Disclaimer: The information contained in this section may have been updated after the patient was seen, as this information can be updated by other users. Medical History Hepatic cyst Increased urinary frequency Liver cyst Protrusion of cervical intervertebral disc Surgical History History of hysterectomy for benign disease Social History Smoking Status: Unknown if ever smoked second hand exposure: No alcohol intake: never current occupational status: other Travel in the last 8 weeks: None ROS Obtained: Yes Systems reviewed as appropriate & no additional complaints except as documented Physical Exam General General appearance: alert and in no apparent distress Head Head exam: atraumatic and normocephalic Eye Eye exam: Present PERRL and EOMI ENT ENT exam: Present mucous membranes francy
[2023-03-15 13:27] VITALS: BP 98/59; PULSE 88; O2SAT 95
[2023-03-15 13:30] VITALS: BP 101/52; PULSE 84; O2SAT 99
[2023-03-15 14:38] VITALS: BP 101/52; PULSE 85; RESP 16; TEMP 36.8; O2SAT 98
[2023-03-18 14:15] LABS: Neisseria gonorrhoeae, NAA Negative (Negative)
== END 2023-03-15 14:40 | disposition home or self-care (01) ==
PROVIDERS: Emergency Provider Emergency Medicine; PCP Physician Assistant
DX: R10.2 Pelvic and perineal pain (principal); K76.89 Other specified diseases of liver
CPT/HCPCS: 80053; 81001; 83605; 83690; 85025; 87491; 87591; 99285

== ENCOUNTER → 2023-03-26 12:22 | Outpatient (CLI) | payer OTHER, SELFPAY ==
--- NOTE | 2023-03-26 12:22 | MM_ITS ---
PROCEDURE INFORMATION: Exam: MG Bilateral Screening 3D Mammography Exam date and time: 03/26/2023 12:48 PM Age: 58 years old Clinical indication: Screening examination; No personal or family history of breast cancer TECHNIQUE: Imaging protocol: Bilateral Screening tomosynthesis and 2D mammography including computer-aided detection (CAD) when performed. COMPARISON: No relevant prior studies available. FINDINGS: MAMMOGRAPHY: Breast composition: The breasts are extremely dense, which lowers the sensitivity of mammography. Mass: None. Architectural distortion: None. Calcifications: No suspicious calcifications. Asymmetric density: None. Skin thickening: None. Axillary adenopathy: None. IMPRESSION: No mammographic evidence of malignancy. Annual screening is recommended unless otherwise clinically indicated. ASSESSMENT: BI-RADS Category 1: Negative
== END ==
PROVIDERS: PCP Physician Assistant; Visit Provider Obstetrics & Gynecology
DX: Z12.31 Encounter for screening mammogram for malignant neoplasm of breast (principal)
CPT/HCPCS: 77063; 77067

== ENCOUNTER 2023-09-14 08:04 | Emergency (ER) | payer SELFPAY ==
--- NOTE | 2023-09-14 08:18 | XR_ITS ---
FINAL REPORT CLINICAL HISTORY: Right hand pain COMPARISON: None FINDINGS: RIGHT HAND: 3 views of the right hand were obtained. There is no acute fracture or dislocation. 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 There are mild and moderate degenerative changes elsewhere in the hand and wrist. Visualized joint spaces are normally aligned. Soft tissues are unremarkable. IMPRESSION: Degenerative changes without acute bony abnormality. Reviewed, Interpreted and Dictated by Quentin Johnson III, MD Transcribed by Jolene Adam Authenticated and . [facility]
--- NOTE | 2023-09-14 08:19 | XR_ITS ---
FINAL REPORT CLINICAL HISTORY: Right wrist pain COMPARISON: None FINDINGS: RIGHT WRIST Three views demonstrate no acute fracture or dislocation. There is a chronic fracture of the ulnar styloid process. There are moderate and severe degenerative changes of the radial aspect of the wrist, greatest at the first CMC joint. The visualized joint spaces are normally aligned. The soft tissues are unremarkable. IMPRESSION: Chronic and degenerative changes without acute bony abnormality. Reviewed, Interpreted and Dictated by Quentin Johnson III, MD Transcribed by Jolene Adam Authenticated and [facility]
[2023-09-14 08:20] VITALS: BP 133/75; PULSE 102; RESP 18; TEMP 36.7; O2SAT 99; BMI 20.2
--- NOTE | 2023-09-14 08:51 | ED_ITS ---
Discharge Plan Disposition Patient Disposition: Home, Self-Care Condition: Good Referrals Follow up/Referrals: Nesha Nelson PA [Primary Care Provider] - See instructions Roly Clements DO [Staff Physician] - See instructions Activity Restrictions/Add. Instructions Additional Instructions/Restrictions: Rest the extremity, Elevate the extremity as tolerated while you are resting. Follow up with Dr. Clements (orthopedics). I put in a referral but you need to call his office and schedule an appointment. Follow up with your regular doctor. GO TO THE ER FOR ANY WORSENING SYMPTOMS Clinical Impressions Clinical Impression: Hand pain, right, Sprain of hand, right Stand Alone Forms Stand Alone Forms: Work/School Release Instructions Patient Instructions: DI for Hand Pain Discharge ED Provider: Marek Gerardo [facility] General Stated complaint: 08/17 fell at work R hand pain Mode of Arrival: Ambulatory Source of Information: Patient Limitations: No Limitations Time Seen by Provider: 09/14/23 08:51 Description of Symptoms (Recalled from Triage Doc. by RN): Pt fell at work on 08/17/2023 and hurt right hand. She stated that its not getting better and wants to get it checked out. HEENT Symptoms (Recalled from RN notes): No Resp Symptoms (Recalled from RN notes): No Skin Symptoms (Recalled from RN notes): No MS Symptoms (Recalled from RN notes): Yes Functional Status (Recalled from RN notes): n/a History of Present Illness Provider Complaint: She states that she fell 2 weeks ago and came down on her right hand. Since then, she has had right hand pain. Her pain is located around the base of her middle finger. She denies any wrist pain. She denies any other complaints or injury. Related Data Allergies Allergy/AdvReac Type Severity Reaction Status Date / Time aspirin [ASPIRIN] Allergy Intermediate I-HIVES Verified 09/14/23 08:38 morphine [MORPHINE] Allergy Intermediate S-SWELLS-OR Verified 09/14/23 08:38 AL/THROAT Penicillins [PENICILLINS] Allergy Unknown NA-NAUSEA/V Verified 09/14/23 08:38 OMITING Worker's Comp Is this a Worker's Comp case?: No [facility] Disclaimer: The information contained in this section may have been updated after the patient was seen, as this information can be updated by other users. Medical History Hepatic cyst Increased urinary frequency Liver cyst Protrusion of cervical intervertebral disc Surgical History History of hysterectomy for benign disease Family History Other Cancer Diabetes Social History Smoking Status: Current every day smoker tobacco type: cigarettes packs per day: 1 second hand exposure: No alcohol intake: never current occupational status: other Travel in the last 8 weeks: None ROS Obtained: Yes All systems reviewed & no additional complaints except as documented Constitutional Constitutional: Denies chills and Denies fever(s) Eyes Eyes: Denies eye discharge ENT Ears, Nose, Mouth, and Throat: Denies dizziness, Denies otalgia and Denies sore throat Cardiovascular Cardiovascular: Denies chest pain Respiratory Respiratory: Denies shortness of breath, Denies chest congestion, Denies cough, Denies stridor and Denies wheezing Gastrointestinal Gastrointestingal: Denies nausea or vomiting Musculoskeletal Musculoskeletal: Reports as per HPI Integumentary/Breasts Skin/Breast: Denies rash Neurologic Neurologic: Denies dizziness and Denies paresthesias Allergic/Immunologic Allergic/Immunologic: Denies wheezing Physical Exam General General appearance: alert and in no apparent distress Head Head exam: atraumatic, normocephalic and normal inspection Eye Eye exam: Present normal appearance, PERRL and EOMI ENT ENT exam: Present normal exam, normal oropharynx, mucous membranes moist, TM's normal bilaterally and normal external ear exam Neck Neck exam: Present normal inspection, full ROM and trachea midline; Absent meningismus or lymphadenopathy Chest Chest inspection: Present normal inspection and symmetric chest wall rise; Absent tenderness Respiratory Respiratory exam: Present normal lung sounds bilaterally; Absent respiratory distress Cardiovascular Cardiovascular exam: Present regular rate and normal rhythm; Absent JVD Abdominal Exam Abdominal exam: Present soft and normal bowel sounds; Absent distention, tenderness or guarding Extremities Exam Extremities exam: Present normal capillary refill; Absent calf tenderness Expanded Upper Extremity Exam Right: Elbow exam: Present normal inspection and full ROM; Absent tenderness, pain w/ pronation/supination or tenderness over radial head Forearm/Wrist exam: Present normal inspection and full ROM; Absent tenderness Hand exam: Present full ROM and tenderness; Absent swelling, abrasion, laceration, skin avulsion, ecchymosis, deformity, crepitus, dislocation, erythema, amputation, nail avulsion or subungual hematoma Neuromotor exam: Normal wrist extension, thumb opposition, thumb IP flexion, thumb adduction and fingers 2-5 abduction Neurosensory exam: Normal radial nerve, ulnar nerve and median nerve Vascular exam: Normal capillary refill, radial pulse and ulnar pulse Back Exam Back exam: Present normal inspection; Absent tenderness Neurological Exam Neurological exam: Present alert and oriented X3 Psychiatric Psychiatric exam: Present normal affect and normal mood Skin Skin exam: Present warm, dry, intact and normal color Lymphatic Lymphatic Findings: no adenopathy Medical Decision Making Medical Records Medical records reviewed: No I reviewed the patient's medical records. Mehran Inquiry Pt receiving controlled substance: No Vital Signs: 09/14/23 08:20 Temperature 98.1 F Temperature Source Oral Pulse Rate [Right Radial] 102 H Respiratory Rate 18 Blood Pressure [Right Arm] 133/75 Blood Pressure Mean [Right Arm] 94 Blood Pressure Source [Right Arm] Automatic Cuff Blood Pressure Position [Right Arm] Sitting 02 Sat by Pulse Oximetry 99 Oxygen Delivery Method Room Air Orders (Tests/Meds): ORDERS Category Date Time Status Hand XR right minimum 3 views [XR hand RT min 3V] Stat Exams 09/14/23 08:18 Taken Wrist XR right minimum 3 views [XR wrist RT min 3V] Exams 09/14/23 08:19 Taken Stat Radiology Data #1: Image(s): Hand Image Reviewed: Yes I reviewed the patient's radiology image and Yes I have reviewed radiologist's interpretation Preliminary Findings: No Fracture Seen FINAL REPORT CLINICAL HISTORY: Right hand pain COMPARISON: None FINDINGS: RIGHT HAND: 3 views of the right hand were obtained. There is no acute fracture or dislocation. 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 There are mild and moderate degenerative changes elsewhere in the hand and wrist. Visualized joint spaces are normally aligned. Soft tissues are unremarkable. IMPRESSION: Degenerative changes without acute bony abnormality. Reviewed, Interpreted and Dictated by Quentin Johnson III, MD Transcribed by Jolene Adam Authenticated and [facility]: Image(s): Wrist Image Reviewed: Yes I reviewed the patient's radiology image and Yes I have reviewed radiologist's interpretation Preliminary Findings: Abnormal Procedures Orthopedic Splinting/Casting Injury #1: Side: right Upper Extremity Injury Location: wrist and hand Upper Extremity Immobilizer: volar splint and applied by nurse/dr valiente Post Cast/Splinting Neuro Status: intact and no change Post Cast/Splinting Vasc Status: intact and no change
[2023-09-14 10:29] VITALS: BP 133/75; PULSE 102; RESP 18; TEMP 36.7; O2SAT 99
== END 2023-09-14 10:29 | disposition home or self-care (01) ==
PROVIDERS: Emergency Provider Nurse Practitioner Family; PCP Physician Assistant
DX: S63.8X1A Sprain of other part of right wrist and hand, initial encounter (principal); W19.XXXA Unspecified fall, initial encounter; Y99.0 Civilian activity done for income or pay; F17.210 Nicotine dependence, cigarettes, uncomplicated
CPT/HCPCS: 29125; 73110; 73130; 99203; 99212; G0463